=== PATIENT | male | born 1935 | race Caucasian/White ===

== ENCOUNTER 2018-08-13 11:50 | Day surgery (SDC) | payer MEDICARE, OTHER ==
[2018-08-12 14:13] LABS: BASOPHILS % (AUTO) 0.5 % (0-1); EOSINOPHILS # (AUTO) 0.1 X10'3 (0-0.9); EOSINOPHILS % (AUTO) 1.5 % (0-6); HEMATOCRIT 43.8 % (42.0-52.0); HEMOGLOBIN 14.4 g/dl (14.0-17.9); LYMPHOCYTES # (AUTO) 2.4 X10'3 (1.1-4.8); LYMPHOCYTES % (AUTO) 35.6 % (21-51); MEAN CORPUSCULAR HEMOGLOBIN 28.9 PG (27.0-31.0); MEAN CORPUSCULAR HGB CONC 32.9 g/dL (33.0-36.5); MEAN CORPUSCULAR VOLUME 87.8 FL (78-98); MEAN PLATELET VOLUME 10.5 FL (7.4-10.4); MONOCYTES # (AUTO) 0.5 X10'3 (0-0.9); MONOCYTES % (AUTO) 7.7 % (2-12); NEUTROPHILS # (AUTO) 3.8 X10'3 (1.8-7.7); NEUTROPHILS % (AUTO) 54.7 % (42-75); PLATELET COUNT 168 X10'3 (140-440); RED BLOOD COUNT 4.99 X10'6 (4.70-6.10); RED CELL DISTRIBUTION WIDTH 13.1 % (11.5-14.5); WHITE BLOOD COUNT 6.9 X10'3 (4.5-11.0)
[2018-08-12 14:14] LABS: ALBUMIN 3.7 G/DL (3.4-5.0); ANION GAP 9 (8-16); BLOOD UREA NITROGEN 27 MG/DL (7-18); BUN/CREATININE RATIO 17.4 (5.4-32.0); CALCIUM 9.8 MG/DL (8.5-10.1); CHLORIDE 103 MMOL/L (99-107); CREATININE 1.55 MG/DL (0.60-1.10); GLUCOSE 177 MG/DL (70-104); POTASSIUM 3.6 MMOL/L (3.5-5.1); SODIUM 139 MMOL/L (135-145); eGFR 43 ML/MIN
[2018-08-12 14:17] LABS: PARTIAL THROMBOPLASTIN TIME 24 SECONDS (22-32); PROTHROMBIN TIME 10.4 SECONDS (9.0-12.0)
--- NOTE | 2018-08-12 17:30 | NUR ---
Received report from ABEL De Santiago, Charge on ACCE, Patient is alert and oriented, his vitals are stable, Groin site dressing clean/dry and intact, no hematoma, pedal pulses are strong and capillary refill is brisk. Blood glucose is WNL. Patient has family at the bedside. Patient has some c/o of nausea but refuses medication when offered prn anti-nausea. Will continue to monitor for duration of shift.
[2018-08-13] VITALS (10 sets, daily range): BP systolic 149–174; BP diastolic 62–80
[~2018-08-13] VITALS: Ht 165.1 cm; Wt 84.6 kg
[~2018-08-13 11:50] MED LIST: ASPI-611 PO; DILT120T3 PO; FENO145T38 PO; FLAX100031 PO; GLUC500T12 PO; LISI10TA4 PO; METF500T PO; METO50TA17 PO; OMEP20CA10 PO; SIMV20TA5 PO; TRIA1CAP6 PO
[2018-08-13] MEDS ORDERED: diphenhydrAMINE 25mg capsule PO ONE (12:05)
[2018-08-13] MEDS ORDERED: normal saline 1000ml 1,000 ML IV SCH (12:05)
[2018-08-13] MEDS ORDERED: LORazepam 0.5 MG tablet PO ONE (12:05)
[2018-08-13] MEDS ORDERED: LIDOcaine 1% (10mg/ml)w/preservative injection 20ml MDV ONE (14:43)
[2018-08-13] MEDS ORDERED: heparin 1,000unit/ml 10ml vial 10 ML ONE ×2 (14:43→16:38)
[2018-08-13] MEDS ORDERED: nitroGLYCERIN-Tridil 50MG/D5W 250 ML IV ONE (14:43)
[2018-08-13] MEDS ORDERED: iohexol 350 MG/ML 50ML vial IV ONE (14:44)
[2018-08-13] MEDS ORDERED: iohexol 350 MG/1 ML 200ml bottle ONE (14:44)
[2018-08-13] MEDS ORDERED: fentaNYL/PF 50MCG/1 ML 2ML syringe ONE (15:03)
[2018-08-13] MEDS ORDERED: midazolam 2 mg/2 ml injection ONE (15:03)
[2018-08-13] MEDS ORDERED: heparin 25,000 UNIT/250ml bag 250 ML IV ONE (15:38)
[2018-08-13] MEDS ORDERED: iohexol 350MG/ML 100ml bottle IV ONE (15:40)
[2018-08-13] MEDS ORDERED: heparin 1,000 UNITS/NS 500ml 500 ML ONE (16:01)
[2018-08-13] MEDS ORDERED: clopidogrel 300mg tablet ONE (16:38)
--- NOTE | 2018-08-13 16:45 | NUR ---
Patient in room MED 315. I have received report from ABEL Cota and had the opportunity to ask questions and assume patient care. Addendum: 08/14/18 at 0645 by Osiris Cali RN Error-wrong patient I received report from ABEL Dallas Charge nurse.
--- NOTE | 2018-08-13 17:03 | NUR ---
PATIENT ARRIVED TO ACCE UNIT VIA GURNEY IN STABLE CONDITION FROM SYSTEMS DEVELOPMENT MANAGER. RIGHT GROIN SITE, CDI, NO BLEEDING OR HEMATOMA NOTED AT THIS TIME. PATIENT ORIENTATED TO ROOM AND ROUTINE. CALL LIGHT IN REACH. PATIENT INSTRUCTED TO REMAIN FLAT UNTIL 2100. WILL CONTINUE TO MONITOR
--- NOTE | 2018-08-13 17:03 | NUR ---
Patient in room . I have received report from ABEL EMERSON IN ENGINE HOSTLER and had the opportunity to ask questions and assume patient care.
[2018-08-13] MEDS ORDERED: OXAZEpam 15mg capsule PO PRN (17:10)
[2018-08-13] MEDS ORDERED: aspirin 81mg tab.chew PO ONE (17:10)
[2018-08-13] MEDS ORDERED: acetaminophen 325mg tablet PO PRN ×2 (17:10)
[2018-08-13] MEDS ORDERED: cyclobenzaprine 10mg tablet PO PRN (17:10)
[2018-08-13] MEDS ORDERED: HYDROcodone/acetaminophen 10/325mg tab PO PRN ×2 (17:10)
[2018-08-13] MEDS ORDERED: proCHLORperazine 10 MG/2 ml inj IV PRN (17:10)
--- NOTE | 2018-08-13 17:12 | NUR ---
CECILE AT BEDSIDE. INFORMED TO KEEP REALLY CLOSE WATCH ON RIGHT GROIN CATH SITE D/T PATIENT STILL ON HEPARIN. WILL CONTINUE TO MONITOR
[2018-08-13] MEDS: sodium bicarbonate (8.4%) inj. 150 ML in sodium chloride 0.45% 1,000 ML IV SCH (17:54)
[2018-08-13] MEDS ORDERED: atorvastatin 10mg tablet PO SCH (21:00)
[2018-08-13] MEDS ORDERED: magnesium hydroxide 30ml (MOM) UD suspension PO SCH (21:00)
[2018-08-13] MEDS ORDERED: fenofibrate 145mg tablet PO SCH (21:00)
[2018-08-13] MEDS: docusate sod 100mg capsule PO SCH (21:14)
[2018-08-13] MEDS: metoprolol tartrate 50mg tablet PO SCH (21:15)
--- NOTE | 2018-08-13 21:15 | NUR ---
During post-op checks to groin, I noticed a small amount of blood on the dressing, I assessed and no hematoma but I notified Charge nurse, ABEL Dallas and the area was circled and pressure was applied to groin. Will continue to monitor for changes through the shift and notify oncoming shift.
[2018-08-14 02:00] VITALS: BP 157/61
--- NOTE | 2018-08-14 03:16 | NUR ---
Patient just had a 19 beat run of V-tach, contacted Dr. Starr to report and awaiting call back. Patient is asymptomatic and went back into sinus rhythm. Will continue to monitor patient.
[2018-08-14] MEDS ORDERED: magnesium 2GM in 50ml NS 50 ML IV ONE (03:25)
[2018-08-14] MEDS ORDERED: potassium Cl 20 mEq SR tablet PO PRN ×2 (03:25)
[2018-08-14] MEDS ORDERED: magnesium Cl slow-release 64mg tablet PO PRN (03:25)
[2018-08-14] MEDS ORDERED: potassium Cl 40MEQ/NS 500ml 500 ML IV PRN ×2 (03:25)
[2018-08-14] MEDS ORDERED: magnesium 2GM in 50ml NS 50 ML IV PRN (03:25)
--- NOTE | 2018-08-14 03:30 | NUR ---
Per Dr. Starr, Replace potassium up to 4.0 mmol and replace magnesium up to 2.0. Add Magnesium to am labs. Order completed, will continue to monitor this patient.
[2018-08-14] MEDS: sodium bicarbonate (8.4%) inj. 150 ML in sodium chloride 0.45% 1,000 ML IV SCH ×3 (04:35→09:37)
[2018-08-14 05:15] LABS: BASOPHILS % (AUTO) 0.3 % (0-1); EOSINOPHILS % (AUTO) 0.4 % (0-6); HEMATOCRIT 40.5 % (42.0-52.0); HEMOGLOBIN 13.2 g/dl (14.0-17.9); LYMPHOCYTES # (AUTO) 1.9 X10'3 (1.1-4.8); LYMPHOCYTES % (AUTO) 23.1 % (21-51); MEAN CORPUSCULAR HEMOGLOBIN 28.6 PG (27.0-31.0); MEAN CORPUSCULAR HGB CONC 32.5 g/dL (33.0-36.5); MEAN CORPUSCULAR VOLUME 87.9 FL (78-98); MEAN PLATELET VOLUME 10.2 FL (7.4-10.4); MONOCYTES # (AUTO) 0.7 X10'3 (0-0.9); MONOCYTES % (AUTO) 8.1 % (2-12); NEUTROPHILS # (AUTO) 5.7 X10'3 (1.8-7.7); NEUTROPHILS % (AUTO) 68.1 % (42-75); PLATELET COUNT 150 X10'3 (140-440); RED BLOOD COUNT 4.61 X10'6 (4.70-6.10); RED CELL DISTRIBUTION WIDTH 12.9 % (11.5-14.5); WHITE BLOOD COUNT 8.4 X10'3 (4.5-11.0)
[2018-08-14 05:39] LABS: ALANINE AMINOTRANSFERASE 25 U/L (12-78); ALBUMIN 3.3 G/DL (3.4-5.0); ALKALINE PHOSPHATASE 32 IU/L (46-116); ANION GAP 8 (8-16); ASPARTATE AMINO TRANSFERASE 29 U/L (10-37); BILIRUBIN,TOTAL 0.7 MG/DL (0.1-1.0); BLOOD UREA NITROGEN 26 MG/DL (7-18); BUN/CREATININE RATIO 18.2 (5.4-32.0); CALCIUM 8.7 MG/DL (8.5-10.1); CHLORIDE 104 MMOL/L (99-107); CHOL/HDL RATIO 3.8 (0.00-4.99); CHOLESTEROL 135 MG/DL (0-200); CREATININE 1.43 MG/DL (0.60-1.10); GLUCOSE 136 MG/DL (70-104); HDL CHOLESTEROL 36 MG/DL (35-60); LDL CHOLESTEROL 72 MG/DL (50-100); POTASSIUM 3.4 MMOL/L (3.5-5.1); SODIUM 142 MMOL/L (135-145); TOTAL CARBON DIOXIDE 29.6 MMOL/L (24-32); TOTAL PROTEIN 6.6 G/DL (6.4-8.2); TRIGLYCERIDES 175 MG/DL (20-135); eGFR 48 ML/MIN
[2018-08-14 06:00] VITALS: BP 125/55
--- NOTE | 2018-08-14 06:15 | NUR ---
Problems reprioritized. Patient report given, questions answered & plan of care reviewed with ABEL Godfrey.
[2018-08-14 06:40] LABS: MAGNESIUM 1.7 MG/DL (1.5-2.4)
[2018-08-14] MEDS ORDERED: pantoprazole 40mg Tablet.DR PO SCH (07:30)
[2018-08-14] MEDS ORDERED: triamterene/HCTZ 37.5/25mg tablet PO SCH (08:00)
[2018-08-14] MEDS ORDERED: diltiazem CD 120mg capsule (once-daily) PO SCH (08:00)
[2018-08-14] MEDS ORDERED: clopidogrel 75mg tablet PO SCH (08:00)
[2018-08-14] MEDS ORDERED: lisinopril 10 MG tablet PO SCH (08:00)
[2018-08-14] MEDS ORDERED: aspirin 325mg tablet PO SCH (08:30)
[2018-08-14] MEDS: metoprolol tartrate 50mg tablet PO SCH (09:38)
[2018-08-14 09:40] VITALS: BP_SYST 139
[2018-08-14] MEDS: docusate sod 100mg capsule PO SCH (09:41)
[2018-08-14] MEDS ORDERED: [UNRECOGNIZED DRUG - REMARK] PO NR (10:00)
[2018-08-14] MEDS ORDERED: ASPI-1 PO (10:19)
[2018-08-14] MEDS ORDERED: CLOP75TA35 PO (10:19)
[2018-08-14] MEDS ORDERED: ATOR40TA71 PO (10:19)
[2018-08-14] MEDS ORDERED: METO50TA17 PO (10:19)
--- NOTE | 2018-08-14 10:23 | NUR ---
PATIENT TO CALL FOR APPT IN 2-4 WEEKS Addendum: 08/14/18 at 1024 by Anyi Zamudio RN Amended: Links added.
--- NOTE | 2018-08-14 10:54 | NUR ---
discharge education provided and all questions answered. pt removed from cardiac monitoring and IV discontinued; cannula in tact. pt ambulated with steady gait with all belongings accompanied by friend downstairs.
[2018-08-15] MEDS ORDERED: metFORMIN 500mg tablet PO SCH (20:00)
== END 2018-08-14 10:55 | disposition home or self-care (01) ==
LOC: SSTAY O 11:50 → UNDOADMOB 17:00 → MED 3N 17:00 → SSTAY O 08-14 10:55 → UNDODISOB 08-14 10:55
PROVIDERS: ATTEND Internal Medicine Cardiovascular Disease
DX: I25.10 Atherosclerotic heart disease of native coronary artery without angina pectoris (principal); I10 Essential (primary) hypertension; E78.5 Hyperlipidemia, unspecified; Z95.1 Presence of aortocoronary bypass graft; K21.9 Gastro-esophageal reflux disease without esophagitis
CPT/HCPCS: 36415; 80048; 80053; 80061; 82948; 83036; 83735; 83880; 85025; 85347; 85610; 85730; 93005; 93459; A6257; C1874; C9600; J1644; J2001; J2250; J3010; J3475; J7030; Q0163; Q9967; 99152; 99153; A4620; C1725; C1760; C1769; C9601; G0378; J3490

== ENCOUNTER 2019-08-26 10:17 | Day surgery (SDC) | payer MEDICARE, OTHER ==
[2019-08-25 14:10] LABS: ALBUMIN 3.8 G/DL (3.4-5.0); ANION GAP 7 (8-16); BASOPHILS % (AUTO) 0.6 % (0-1); BLOOD UREA NITROGEN 35 MG/DL (7-18); BUN/CREATININE RATIO 21.9 (5.4-32.0); CALCIUM 9.4 MG/DL (8.5-10.1); CHLORIDE 103 MMOL/L (99-107); EOSINOPHILS # (AUTO) 0.1 X10'3 (0-0.9); GLUCOSE 113 MG/DL (70-104); HEMATOCRIT 44.4 % (42.0-52.0); HEMOGLOBIN 14.6 g/dl (14.0-17.9); LYMPHOCYTES # (AUTO) 2.7 X10'3 (1.1-4.8); MEAN CORPUSCULAR HEMOGLOBIN 29.2 PG (27.0-31.0); MEAN CORPUSCULAR VOLUME 88.4 FL (78-98); MEAN PLATELET VOLUME 10.5 FL (7.4-10.4); MONOCYTES # (AUTO) 0.6 X10'3 (0-0.9); MONOCYTES % (AUTO) 9.3 % (2-12); NEUTROPHILS # (AUTO) 3.4 X10'3 (1.8-7.7); NEUTROPHILS % (AUTO) 49.1 % (42-75); PLATELET COUNT 163 X10'3 (140-440); POTASSIUM 3.8 MMOL/L (3.5-5.1); RED BLOOD COUNT 5.02 X10'6 (4.70-6.10); RED CELL DISTRIBUTION WIDTH 13.1 % (11.5-14.5); SODIUM 139 MMOL/L (135-145); TOTAL CARBON DIOXIDE 28.8 MMOL/L (24-32); WHITE BLOOD COUNT 6.9 X10'3 (4.5-11.0); eGFR 42 ML/MIN
[2019-08-25 14:16] LABS: PARTIAL THROMBOPLASTIN TIME 23 SECONDS (22-32)
[~2019-08-26] VITALS: Ht 165.1 cm; Wt 86.5 kg
[2019-08-26] VITALS (10 sets, daily range): BP systolic 116–147; BP diastolic 45–63
[~2019-08-26 10:17] MED LIST changes: +ASPI-1 PO; -ASPI-611 PO; +ATOR40TA71 PO; +CLOP75TA35 PO; -OMEP20CA10 PO; +OMEP20CA15 PO; -SIMV20TA5 PO
[2019-08-26] MEDS ORDERED: LORazepam 0.5 MG tablet PO PRN (10:55)
[2019-08-26] MEDS ORDERED: normal saline 1,000 ML IV SCH (10:55)
[2019-08-26] MEDS ORDERED: diphenhydrAMINE 25mg capsule PO PRN (10:55)
[2019-08-26] MEDS ORDERED: midazolam 2 mg/2 ml injection ONE (11:28)
[2019-08-26] MEDS ORDERED: iohexol 350MG/ML 100ml bottle IV ONE (11:29)
[2019-08-26] MEDS ORDERED: iohexol 350 MG/ML 50ML vial IV ONE (11:29)
[2019-08-26] MEDS ORDERED: LIDOcaine 1% (10mg/ml)w/preservative injection 20ml MDV ONE (11:29)
[2019-08-26] MEDS ORDERED: fentaNYL/PF 50MCG/1 ML 2ML syringe ONE (11:29)
[2019-08-26] MEDS ORDERED: ASPI-1265 PO (11:51)
[2019-08-26] MEDS ORDERED: GLUC500C40 PO (11:51)
[2019-08-26] MEDS ORDERED: nitroGLYCERIN-Tridil 50MG/D5W 250 ML IV ONE (11:55)
[2019-08-26] MEDS ORDERED: heparin 1,000unit/ml 10ml vial 10 ML ONE (11:55)
[2019-08-26] MEDS ORDERED: acetylcysteine 200 MG/ml 4ml vial PO ONE ×2 (13:10→15:35)
[2019-08-26] MEDS ORDERED: normal saline 1000ml 1,000 ML IV SCH (13:10)
== END 2019-08-26 17:58 | disposition home or self-care (01) ==
LOC: MED 3N 10:17 → SSTAY O 10:17
PROVIDERS: ATTEND Internal Medicine Cardiovascular Disease
DX: R94.39 Abnormal result of other cardiovascular function study (principal); I25.10 Atherosclerotic heart disease of native coronary artery without angina pectoris; I25.82 Chronic total occlusion of coronary artery; I10 Essential (primary) hypertension; E78.5 Hyperlipidemia, unspecified; G47.33 Obstructive sleep apnea (adult) (pediatric); Z95.5 Presence of coronary angioplasty implant and graft; Z79.82 Long term (current) use of aspirin; Z79.899 Other long term (current) drug therapy; K21.9 Gastro-esophageal reflux disease without esophagitis; Z80.9 Family history of malignant neoplasm, unspecified
CPT/HCPCS: 36415; 80048; 82948; 85025; 85610; 85730; 93005; 93459; 99152; 99153; C1769; J1644; J2001; J2250; J3010; J7030; Q0163; Q9967; A4620; A6258; C1760; J3490

== ENCOUNTER 2020-11-21 06:09 | Day surgery (SDC) | payer MEDICARE, OTHER ==
[2020-11-20 10:48] LABS: BASOPHILS % (AUTO) 0.5 % (0-1); EOSINOPHILS # (AUTO) 0.2 X10'3 (0-0.9); EOSINOPHILS % (AUTO) 2.5 % (0-6); HEMATOCRIT 45.6 % (42.0-52.0); HEMOGLOBIN 15.2 g/dl (14.0-17.9); MEAN CORPUSCULAR HEMOGLOBIN 29.1 PG (27.0-31.0); MEAN CORPUSCULAR HGB CONC 33.3 g/dL (33.0-36.5); MEAN CORPUSCULAR VOLUME 87.3 FL (78-98); MEAN PLATELET VOLUME 9.9 FL (7.4-10.4); MONOCYTES # (AUTO) 0.5 X10'3 (0-0.9); NEUTROPHILS # (AUTO) 3.8 X10'3 (1.8-7.7); PLATELET COUNT 156 X10'3 (140-440); RED BLOOD COUNT 5.22 X10'6 (4.70-6.10); WHITE BLOOD COUNT 6.5 X10'3 (4.5-11.0)
[2020-11-20 10:58] LABS: ALBUMIN 3.7 G/DL (3.4-5.0); ANION GAP 9 (8-16); BLOOD UREA NITROGEN 27 MG/DL (7-18); BUN/CREATININE RATIO 18.2 (5.4-32.0); CALCIUM 9.2 MG/DL (8.5-10.1); CHLORIDE 104 MMOL/L (99-107); CREATININE 1.48 MG/DL (0.60-1.10); GLUCOSE 151 MG/DL (70-104); POTASSIUM 3.6 MMOL/L (3.5-5.1); SODIUM 141 MMOL/L (135-145); TOTAL CARBON DIOXIDE 28.2 MMOL/L (24-32); eGFR 45 ML/MIN
[2020-11-20 11:01] LABS: PARTIAL THROMBOPLASTIN TIME 22 SECONDS (22-32)
[2020-11-21] VITALS (14 sets, daily range): BP systolic 57–184; BP diastolic 50–66
[~2020-11-21] VITALS: Ht 165.1 cm; Wt 85.5 kg
[~2020-11-21 06:09] MED LIST changes: -ASPI-1 PO; +ASPI-1265 PO; +CLOP75TA34 PO; -CLOP75TA35 PO; +GLUC500C40 PO; +LISI10TA27 PO; -LISI10TA4 PO; -TRIA1CAP6 PO
[2020-11-21] MEDS ORDERED: LORazepam 0.5 MG tablet PO PRN ×2 (06:20→07:55)
[2020-11-21] MEDS ORDERED: diphenhydrAMINE 25mg capsule PO PRN ×2 (06:20→07:55)
[2020-11-21] MEDS ORDERED: normal saline 1,000 ML IV SCH ×2 (06:20→07:55)
[2020-11-21] MEDS ORDERED: FLO0.4C PO (06:34)
[2020-11-21] MEDS ORDERED: METO50TA16 PO (06:34)
[2020-11-21] MEDS ORDERED: MULT-1085 PO (06:34)
[2020-11-21] MEDS ORDERED: OMEG1CAP21 PO (06:34)
[2020-11-21] MEDS ORDERED: UBID400C6 PO (06:34)
[2020-11-21] MEDS ORDERED: TRIA1CAP6 PO (06:34)
[2020-11-21] MEDS ORDERED: CLOP75TA15 PO (06:34)
[2020-11-21] MEDS ORDERED: fentaNYL/PF 50MCG/1 ML 2ML syringe ONE (07:20)
[2020-11-21] MEDS ORDERED: nitroGLYCERIN-Tridil 50MG/D5W 250 ML IV ONE (07:20)
[2020-11-21] MEDS ORDERED: midazolam 1 mg/ML 2ml injection ONE (07:20)
[2020-11-21] MEDS ORDERED: LIDOcaine 1% (10mg/ml)w/preservative injection 20ml MDV ONE (07:21)
[2020-11-21] MEDS ORDERED: heparin 1,000unit/ml 10ml vial 10 ML ONE ×2 (07:21→08:39)
[2020-11-21] MEDS ORDERED: iohexol 350 MG/ML 50ML vial IV ONE (07:21)
[2020-11-21] MEDS ORDERED: iohexol 350MG/ML 100ml bottle IV ONE ×2 (07:21→08:39)
[2020-11-21] MEDS ORDERED: sodium bicarbonate (8.4%) inj. 150 ML in dextrose 5%-water 1,000 ML IV ONE ×2 (07:55→09:55)
[2020-11-21] MEDS ORDERED: heparin 25,000 UNIT/250ml bag 250 ML IV ONE (08:40)
[2020-11-21] MEDS ORDERED: clopidogrel 300mg tablet PO ONE (09:00)
[2020-11-21] MEDS ORDERED: clopidogrel 300mg tablet ONE (09:05)
[2020-11-21] MEDS ORDERED: acetylcysteine 200 MG/ml 4ml vial PO ONE (09:55)
--- NOTE | 2020-11-21 10:09 | NUR ---
nonadmin plavix as beto ROMAN gave it in [employer]
[2020-11-21] MEDS ORDERED: HYDROcodone/acetaminophen 5mg/325mg tablet PO PRN (12:05)
[2020-11-21] MEDS ORDERED: HYDROcodone/acetaminophen 10/325mg tab PO PRN (12:05)
[2020-11-21] MEDS ORDERED: cyclobenzaprine 10mg tablet PO ONE (14:55)
== END 2020-11-21 17:50 | disposition home or self-care (01) ==
LOC: SSTAY O 06:09
PROVIDERS: ATTEND Internal Medicine Cardiovascular Disease
DX: R94.39 Abnormal result of other cardiovascular function study (principal); I25.810 Atherosclerosis of coronary artery bypass graft(s) without angina pectoris; I10 Essential (primary) hypertension; E78.49 Other hyperlipidemia; K21.9 Gastro-esophageal reflux disease without esophagitis; Z79.899 Other long term (current) drug therapy; Z79.82 Long term (current) use of aspirin; Z79.84 Long term (current) use of oral hypoglycemic drugs; Z72.89 Other problems related to lifestyle; Z87.891 Personal history of nicotine dependence; Z79.01 Long term (current) use of anticoagulants; Z95.5 Presence of coronary angioplasty implant and graft; Z80.9 Family history of malignant neoplasm, unspecified
CPT/HCPCS: 36415; 76937; 80048; 82948; 85025; 85347; 85610; 85730; 93005; 93459; 99152; 99153; C1725; C1751; C1760; C1769; C1874; C1887; C1894; C9604; J1644; J2001; J2250; J3010; J7030; Q0163; Q9967; A4620; A6258; J3490

== ENCOUNTER 2020-12-05 05:55 | Day surgery (SDC) | payer MEDICARE, OTHER ==
[2020-12-04 11:07] LABS: BASOPHILS % (AUTO) 0.5 % (0-1); EOSINOPHILS # (AUTO) 0.2 X10'3 (0-0.9); EOSINOPHILS % (AUTO) 2.6 % (0-6); HEMATOCRIT 45.3 % (42.0-52.0); LYMPHOCYTES # (AUTO) 2.3 X10'3 (1.1-4.8); LYMPHOCYTES % (AUTO) 33.5 % (21-51); MEAN CORPUSCULAR HEMOGLOBIN 28.8 PG (27.0-31.0); MEAN CORPUSCULAR HGB CONC 33.1 g/dL (33.0-36.5); MEAN CORPUSCULAR VOLUME 87.1 FL (78-98); MEAN PLATELET VOLUME 10.1 FL (7.4-10.4); MONOCYTES # (AUTO) 0.6 X10'3 (0-0.9); MONOCYTES % (AUTO) 9.3 % (2-12); NEUTROPHILS # (AUTO) 3.7 X10'3 (1.8-7.7); NEUTROPHILS % (AUTO) 54.1 % (42-75); PLATELET COUNT 172 X10'3 (140-440); RED CELL DISTRIBUTION WIDTH 14.2 % (11.5-14.5); WHITE BLOOD COUNT 6.9 X10'3 (4.5-11.0)
[2020-12-04 11:14] LABS: ALBUMIN 3.7 G/DL (3.4-5.0); ANION GAP 8 (8-16); BLOOD UREA NITROGEN 35 MG/DL (7-18); BUN/CREATININE RATIO 23.6 (5.4-32.0); CALCIUM 9.1 MG/DL (8.5-10.1); CHLORIDE 105 MMOL/L (99-107); CREATININE 1.48 MG/DL (0.60-1.10); GLUCOSE 148 MG/DL (70-104); POTASSIUM 3.5 MMOL/L (3.5-5.1); SODIUM 140 MMOL/L (135-145); TOTAL CARBON DIOXIDE 27.4 MMOL/L (24-32); eGFR 45 ML/MIN
[2020-12-04 11:18] LABS: PARTIAL THROMBOPLASTIN TIME 23 SECONDS (22-32)
[2020-12-05] VITALS (10 sets, daily range): BP systolic 118–178; BP diastolic 56–82
[~2020-12-05] VITALS: Ht 165.1 cm; Wt 86.0 kg
[~2020-12-05 05:55] MED LIST changes: +CLOP75TA15 PO; -CLOP75TA34 PO; -FLAX100031 PO; +FLO0.4C PO; -GLUC500C40 PO; +METO50TA16 PO; -METO50TA17 PO; +MULT-1085 PO; +OMEG1CAP21 PO; +TRIA1CAP6 PO; +UBID400C6 PO
[2020-12-05] MEDS ORDERED: normal saline 1,000 ML IV SCH (06:15)
[2020-12-05] MEDS ORDERED: diphenhydrAMINE 25mg capsule PO PRN (06:15)
[2020-12-05] MEDS ORDERED: LORazepam 0.5 MG tablet PO PRN (06:15)
[2020-12-05] MEDS ORDERED: acetylcysteine 200 MG/ml 4ml vial PO SCH (06:18)
[2020-12-05] MEDS ORDERED: sodium bicarbonate (8.4%) inj. 150 ML in dextrose 5%-water 1,000 ML IV ONE (06:20)
[2020-12-05] MEDS ORDERED: ATOR40TA PO (06:23)
[2020-12-05] MEDS ORDERED: CLOP75TA34 PO (08:03)
[2020-12-05] MEDS ORDERED: midazolam 1 mg/ML 2ml injection ONE (11:18)
[2020-12-05] MEDS ORDERED: LIDOcaine 1% (10mg/ml)w/preservative injection 20ml MDV ONE (11:18)
[2020-12-05] MEDS ORDERED: heparin 1,000unit/ml 10ml vial 10 ML ONE ×2 (11:18→13:13)
[2020-12-05] MEDS ORDERED: fentaNYL/PF 50MCG/1 ML 2ML syringe ONE (11:18)
[2020-12-05] MEDS ORDERED: iohexol 350 MG/1 ML 200ml bottle ONE (11:18)
[2020-12-05] MEDS ORDERED: verapamil 2.5 mg/ml inj IV ONE (11:33)
[2020-12-05] MEDS ORDERED: nitroGLYCERIN-Tridil 50MG/D5W 250 ML IV ONE (11:33)
[2020-12-05] MEDS ORDERED: atropine 0.1mg/ml 10ml syringe ONE (12:05)
[2020-12-05] MEDS ORDERED: heparin 25,000 UNIT/250ml bag 250 ML IV ONE (12:15)
[2020-12-05] MEDS ORDERED: iohexol 350MG/ML 100ml bottle IV ONE (12:47)
[2020-12-05] MEDS ORDERED: clopidogrel 300mg tablet ONE (13:13)
[2020-12-05] MEDS ORDERED: normal saline 1000ml 1,000 ML IV SCH (13:45)
[2020-12-06] MEDS ORDERED: clopidogrel 75mg tablet PO SCH (08:00)
== END 2020-12-05 19:50 | disposition home or self-care (01) ==
LOC: SSTAY O 05:55
PROVIDERS: ATTEND Internal Medicine Cardiovascular Disease
DX: R94.39 Abnormal result of other cardiovascular function study (principal); I25.810 Atherosclerosis of coronary artery bypass graft(s) without angina pectoris; E78.49 Other hyperlipidemia; I10 Essential (primary) hypertension; K21.9 Gastro-esophageal reflux disease without esophagitis; G47.30 Sleep apnea, unspecified; Z87.891 Personal history of nicotine dependence; Z72.89 Other problems related to lifestyle; Z79.01 Long term (current) use of anticoagulants; Z79.899 Other long term (current) drug therapy; Z79.82 Long term (current) use of aspirin; Z79.84 Long term (current) use of oral hypoglycemic drugs; Z80.9 Family history of malignant neoplasm, unspecified
CPT/HCPCS: 36415; 80048; 85025; 85347; 85610; 85730; 93005; 99152; 99153; C1725; C1751; C1769; C1874; C1894; C9600; C9604; J0461; J1644; J2001; J2250; J3010; J7030; Q0163; Q9967; A4620; A5120; A6258; J3490